=== PATIENT | male | born 1985 | race Two or more races ===

== ENCOUNTER 2020-03-04 13:39 | Inpatient (IN) | payer MEDICARE, OTHER ==
[2020-03-04 13:56] VITALS: BMI 26.6
[2020-03-04 16:49] LABS: BASO % 1.1 % (0-2.0); EOS % 7.4 % (0-4.5); HEMATOCRIT 44.2 % (35.4-49); HEMOGLOBIN 14.4 GM/dL (11.7-16.9); LYMPH % 52.6 % (8-40); MCH 27.5 pg (25.7-33.7); MCHC 32.6 g/dl (32.0-35.9); MEAN CELL VOLUME 84.1 fl (80-96); MEAN PLT VOLUME 8.8 fl (7.5-11.1); MONO % 11.2 % (3.8-10.2); NEUT % 27.7 % (42.8-82.8); PLATELET COUNT 284 K/MM3 (134-434); RBC 5.25 M/mm3 (4.00-5.60); RDW 14.7 % (11.9-15.9); WHITE BLOOD COUNT 4.3 K/mm3 (4.0-10.0)
[2020-03-04 17:07] LABS: POTASSIUM 5.2 mmol/L (3.5-5.1)
[2020-03-04 17:10] LABS: ALBUMIN 3.8 g/dl (3.4-5.0); BLOOD UREA NITROGEN 14.6 mg/dL (7-18)
[2020-03-04 17:13] LABS: CREATININE 0.8 mg/dL (0.55-1.3)
[2020-03-04 17:14] LABS: BILIRUBIN,TOTAL 0.2 mg/dL (0.2-1); TOT PROT 8.3 g/dl (6.4-8.2)
[2020-03-05 08:40] LABS: BASO % 0.4 % (0-2.0); EOS % 8.5 % (0-4.5); HEMATOCRIT 42.3 % (35.4-49); HEMOGLOBIN 14.2 GM/dL (11.7-16.9); LYMPH % 59.5 % (8-40); MCHC 33.5 g/dl (32.0-35.9); MEAN CELL VOLUME 83.4 fl (80-96); MEAN PLT VOLUME 8.7 fl (7.5-11.1); MONO % 10.3 % (3.8-10.2); NEUT % 21.3 % (42.8-82.8); PLATELET COUNT 269 K/MM3 (134-434); RBC 5.06 M/mm3 (4.00-5.60); RDW 14.4 % (11.9-15.9)
[2020-03-05 08:56] LABS: POTASSIUM 4.4 mmol/L (3.5-5.1)
[2020-03-05 09:12] LABS: ALBUMIN 3.5 g/dl (3.4-5.0)
[2020-03-05 09:13] LABS: BILIRUBIN,TOTAL 0.2 mg/dL (0.2-1)
[2020-03-05 09:14] LABS: BLOOD UREA NITROGEN 16.9 mg/dL (7-18); CALCIUM 8.8 mg/dL (8.5-10.1); TOT PROT 7.5 g/dl (6.4-8.2)
[2020-03-05 09:15] LABS: CREATININE 0.9 mg/dL (0.55-1.3)
[2020-03-05] MEDS ORDERED: METHADONE HCL 5 MG TABLET ONE (09:16)
[2020-03-05] MEDS ORDERED: METHADONE HCL 10 MG TABLET ONE (09:16)
[2020-03-05] MEDS ORDERED: SODIUM CHLORIDE 0.9% 1000 ML INFUS.BAG IV ONE (09:39)
[2020-03-05] MEDS: ENOXAPARIN NA (PORCINE) 40 MG/0.4 ML DISP.SYRIN SQ SCH (09:43)
[2020-03-05] MEDS ORDERED: METHADONE 10 MG, METHADONE 5 MG PO ONE (10:00)
[2020-03-05] MEDS ORDERED: PT OWN MED DRAWER 7, Y5N ONE (10:07)
[2020-03-05] MEDS: hydrOXYzine PAMOATE 25 MG CAPSULE (FP) PO PRN (10:09)
[2020-03-05] MEDS: POLYETHYLENE GLYCOL 3350 119 GM BTL PO SCH (16:11)
[2020-03-05] MEDS: DOCUSATE SODIUM 100 MG CAPSULE (FP) PO SCH (16:11)
[2020-03-06] MEDS: SENNOSIDES 8.6MG TABLET (FP) PO SCH (05:54)
[2020-03-06 07:14] LABS: BASO % 1.2 % (0-2.0); EOS % 10.2 % (0-4.5); HEMATOCRIT 42.9 % (35.4-49); HEMOGLOBIN 14.1 GM/dL (11.7-16.9); LYMPH % 57.7 % (8-40); MCH 27.5 pg (25.7-33.7); MCHC 32.8 g/dl (32.0-35.9); MEAN CELL VOLUME 83.9 fl (80-96); MEAN PLT VOLUME 8.8 fl (7.5-11.1); MONO % 11.8 % (3.8-10.2); NEUT % 19.1 % (42.8-82.8); PLATELET COUNT 244 K/MM3 (134-434); RBC 5.12 M/mm3 (4.00-5.60); RDW 14.4 % (11.9-15.9); WHITE BLOOD COUNT 4.3 K/mm3 (4.0-10.0)
[2020-03-06 07:31] LABS: POTASSIUM 4.5 mmol/L (3.5-5.1)
[2020-03-06 07:40] LABS: ALBUMIN 3.4 g/dl (3.4-5.0); BLOOD UREA NITROGEN 19.2 mg/dL (7-18)
[2020-03-06 07:43] LABS: CREATININE 0.8 mg/dL (0.55-1.3)
[2020-03-06 07:45] LABS: BILIRUBIN,TOTAL 0.3 mg/dL (0.2-1); TOT PROT 7.3 g/dl (6.4-8.2)
[2020-03-06] MEDS ORDERED: PT OWN MED DRAWER 7, Y5N ONE (09:45)
[2020-03-06] MEDS ORDERED: METHADONE HCL 10 MG TABLET PO ONE (10:00)
[2020-03-06] MEDS: POLYETHYLENE GLYCOL 3350 119 GM BTL PO SCH (10:06)
[2020-03-06] MEDS: ENOXAPARIN NA (PORCINE) 40 MG/0.4 ML DISP.SYRIN SQ SCH (10:06)
[2020-03-06] MEDS: DOCUSATE SODIUM 100 MG CAPSULE (FP) PO SCH (10:07)
[2020-03-06] MEDS: hydrOXYzine PAMOATE 25 MG CAPSULE (FP) PO PRN (10:07)
[2020-03-07 07:48] LABS: BASO % 1.3 % (0-2.0); EOS % 10.5 % (0-4.5); HEMATOCRIT 46.1 % (35.4-49); HEMOGLOBIN 15.1 GM/dL (11.7-16.9); LYMPH % 48.1 % (8-40); MCH 27.6 pg (25.7-33.7); MCHC 32.8 g/dl (32.0-35.9); MEAN PLT VOLUME 9.3 fl (7.5-11.1); NEUT % 29.1 % (42.8-82.8); PLATELET COUNT 228 K/MM3 (134-434); RBC 5.49 M/mm3 (4.00-5.60); RDW 14.1 % (11.9-15.9); WHITE BLOOD COUNT 3.7 K/mm3 (4.0-10.0)
[2020-03-07 08:09] LABS: POTASSIUM 4.7 mmol/L (3.5-5.1)
[2020-03-07 08:38] LABS: ALBUMIN 3.6 g/dl (3.4-5.0); BLOOD UREA NITROGEN 17.3 mg/dL (7-18); CALCIUM 9.2 mg/dL (8.5-10.1)
[2020-03-07 08:41] LABS: CREATININE 0.8 mg/dL (0.55-1.3)
[2020-03-07 08:42] LABS: BILIRUBIN,TOTAL 0.3 mg/dL (0.2-1); TOT PROT 7.7 g/dl (6.4-8.2)
[2020-03-07] MEDS ORDERED: METHADONE HCL 5 MG TABLET PO ONE (10:00)
[2020-03-07] MEDS: DOCUSATE SODIUM 100 MG CAPSULE (FP) PO SCH (10:45)
[2020-03-07] MEDS: POLYETHYLENE GLYCOL 3350 119 GM BTL PO SCH (10:45)
[2020-03-07] MEDS: ENOXAPARIN NA (PORCINE) 40 MG/0.4 ML DISP.SYRIN SQ SCH (10:46)
[2020-03-07] MEDS ORDERED: PT OWN MED DRAWER 7, Y5N ONE (11:35)
[2020-03-07] MEDS: SENNOSIDES 8.6MG TABLET (FP) PO SCH (22:39)
[2020-03-08] MEDS: ENOXAPARIN NA (PORCINE) 40 MG/0.4 ML DISP.SYRIN SQ SCH (09:00)
[2020-03-08] MEDS: DOCUSATE SODIUM 100 MG CAPSULE (FP) PO SCH (09:00)
[2020-03-08] MEDS: POLYETHYLENE GLYCOL 3350 119 GM BTL PO SCH (09:01)
[2020-03-08] MEDS: SENNOSIDES 8.6MG TABLET (FP) PO SCH (21:17)
[2020-03-09 07:37] LABS: POTASSIUM 4.7 mmol/L (3.5-5.1)
[2020-03-09 07:43] LABS: BASO % 0.4 % (0-2.0); EOS % 3.2 % (0-4.5); HEMOGLOBIN 14.8 GM/dL (11.7-16.9); LYMPH % 31.7 % (8-40); MCH 27.7 pg (25.7-33.7); MCHC 33.6 g/dl (32.0-35.9); MEAN CELL VOLUME 82.5 fl (80-96); MEAN PLT VOLUME 9.4 fl (7.5-11.1); NEUT % 55.7 % (42.8-82.8); PLATELET COUNT 275 K/MM3 (134-434); RBC 5.33 M/mm3 (4.00-5.60); RDW 14.2 % (11.9-15.9); WHITE BLOOD COUNT 6.7 K/mm3 (4.0-10.0)
[2020-03-09 07:44] LABS: BLOOD UREA NITROGEN 11.2 mg/dL (7-18); CALCIUM 9.5 mg/dL (8.5-10.1)
[2020-03-09 07:45] LABS: ALBUMIN 3.8 g/dl (3.4-5.0); MAGNESIUM 2.2 mg/dL (1.8-2.4)
[2020-03-09 07:47] LABS: CREATININE 0.8 mg/dL (0.55-1.3); PHOSPHOROUS 3.9 mg/dL (2.5-4.9)
[2020-03-09 07:49] LABS: BILIRUBIN,TOTAL 0.2 mg/dL (0.2-1); TOT PROT 8.1 g/dl (6.4-8.2)
[2020-03-09] MEDS: ENOXAPARIN NA (PORCINE) 40 MG/0.4 ML DISP.SYRIN SQ SCH (09:57)
[2020-03-09] MEDS: POLYETHYLENE GLYCOL 3350 119 GM BTL PO SCH (10:02)
[2020-03-09] MEDS: DOCUSATE SODIUM 100 MG CAPSULE (FP) PO SCH (10:02)
[2020-03-09 15:40] VITALS: BP 124/68; PULSE 75; TEMP 98
== END 2020-03-09 16:27 | disposition home or self-care (01) | DRG 137 ==
LOC: JER 13:39 → JERBED 16:33 → J4W 18:57
PROVIDERS: ADMIT Internal Medicine; ATTEND Internal Medicine
DX: A15.9 Respiratory tuberculosis unspecified (principal); R76.11 Nonspecific reaction to tuberculin skin test without active tuberculosis; F17.210 Nicotine dependence, cigarettes, uncomplicated; F32.9 Major depressive disorder, single episode, unspecified; B19.20 Unspecified viral hepatitis C without hepatic coma; Z59.0 Homelessness; F11.20 Opioid dependence, uncomplicated; E46 Unspecified protein-calorie malnutrition; Z68.26 Body mass index [BMI] 26.0-26.9, adult
CPT/HCPCS: 36415; 71046-TC-FY; 71260-TC; 80053; 80074; 83735; 84100; 85025; 86480; 93005; 93010; 99285-25; C9803; Q9967; U0003